=== PATIENT | female | born 1955 | race Caucasian/White ===

== ENCOUNTER → 2017-04-03 | Outpatient (CLI) | payer BC ==
--- NOTE | 2017-04-03 14:50 | XR ---
EXAMINATION TYPE: XR chest 2V DATE OF EXAM: 04/03/2017 HISTORY: N28.1 cyst on kidney. REFERENCE: Previous study dated 10/08/2016. FINDINGS: The lungs are clear. Pleural spaces are clear. Heart size is upper limits of normal. IMPRESSION: NO ACTIVE INTRATHORACIC DISEASE.
[2017-04-03 14:51] LABS: Blood Urea Nitrogen 20 mg/dL (7-17); Non-African American GFR(MDRD) >60 (>60 ml/min/1.73 sqM)
--- NOTE | 2017-04-03 15:42 | CT ---
EXAMINATION TYPE: CT abdomen w con DATE OF EXAM: 04/03/2017 REFERENCE: Previous study dated 07/17/2016. HISTORY: N28.1 cyst on kidney HISTORY: Follow up renal cancer. No complaints at time of scan REFERENCE: NONE CT DLP: 1013.8 mGy Automated exposure control for dose reduction was used. TECHNIQUE: Helical acquisition through the abdomen and pelvis was obtained following the oral ingesti on of with Oral Contrast and following intravenous administration of 100 mL of Omnipaque 300. The christa a was reformatted in axial, coronal and sagittal projections. FINDINGS: There is minimal dependent atelectasis at the right lung base. There is no pleural or rosette cardial fluid. Heart size upper limits of normal. There is a small hiatal hernia. Within the abdomen, the gallbladder is contracted. The liver and spleen are normal. Both adrenal glands are normal. There is a stable defect along the lateral margin of the lower pole of the left kidney. There is a st able, 8mm oval lesion in the mid polar region of the left kidney. The right kidney appears normal. The pancreas is unremarkable. There is no significant retroperitoneal adenopathy. Loops of large and small bowel appear normal. No free fluid and no free air is seen. There is mild degenerative disc disease and hypertrophic spondylosis within the spine. No bony destru ctive lesion is seen. IMPRESSION: 1. STATUS POST LEFT HEMINEPHRECTOMY. 2. SMALL HIATAL HERNIA. 3. MILD DEGENERATIVE CHANGES WITHIN THE SPINE.
== END | disposition home or self-care (01) ==
LOC: RADCTMAIN 13:58
PROVIDERS: ATTEND Urology
DX: K44.9 Diaphragmatic hernia without obstruction or gangrene (principal); N28.1 Cyst of kidney, acquired; Z88.5 Allergy status to narcotic agent
CPT/HCPCS: 82565; 84520; 71020; 74160; 36415; Q9967

== ENCOUNTER → 2018-04-23 | Outpatient (CLI) | payer BC ==
[2018-04-23 18:56] LABS: Blood Urea Nitrogen 15 mg/dL (7-17)
--- NOTE | 2018-04-23 19:10 | XR ---
EXAMINATION TYPE: XR chest 2V DATE OF EXAM: 04/23/2018 COMPARISON: 10/08/2017 HISTORY: Renal cancer TECHNIQUE: Frontal and lateral views of the chest are obtained. FINDINGS: Heart and mediastinum are normal. Lungs are clear. Diaphragm is normal. Bony thorax appear s normal. IMPRESSION: Normal chest. No change.
[2018-04-23 20:03] LABS: ALT 35 U/L (9-52); AST 24 U/L (14-36); Albumin 4.3 g/dL (3.5-5.0); Alkaline Phosphatase 75 U/L (38-126); Anion Gap 11 mmol/L; Blood Urea Nitrogen 15 mg/dL (7-17); Calcium 9.4 mg/dL (8.4-10.2); Carbon Dioxide 28 mmol/L (22-30); Chloride 100 mmol/L (98-107); Glucose 88 mg/dL (74-99); Potassium 3.9 mmol/L (3.5-5.1); Sodium 139 mmol/L (137-145); Total Bilirubin 0.2 mg/dL (0.2-1.3); Total Protein 6.7 g/dL (6.3-8.2)
--- NOTE | 2018-04-24 08:08 | CT ---
EXAMINATION TYPE: CT abdomen w con DATE OF EXAM: 04/23/2018 HISTORY: Malignant neoplasm of kidney progress study CT DLP: 1205mGycm Automated Exposure Control for Dose Reduction was Utilized. CONTRAST: CT scan of the abdomen is performed with oral and with IV Contrast, patient injected with 100 mL of I sovue 300. COMPARISON: CT abdomen April 03, 2017 and older studies. FINDINGS: LUNG BASES: There is mild central left basilar linear scarring redemonstrated. Tiny pericardial effus ion is again seen LIVER/GB: Liver remains heterogeneously hypodense to isodense likely reflecting diffuse fatty infiltr ation. PANCREAS: Some mild generalized fat replaced atrophy of the pancreas is redemonstrated. SPLEEN: No significant abnormality is seen. ADRENALS: No significant abnormality is seen. KIDNEYS: There are surgical sutures along lateral mid to lower pole level left kidney from prior part ial nephrectomy redemonstrated where there was exophytic neoplasm on original study February 19, 2016. S ome vague area of subcentimeter diminished enhancement does not appear significantly changed from oth er postsurgical studies likely reflecting scarring. There is symmetric cortical medullary uptake and excretion from both kidneys with few subcentimeter areas of hypodensity felt to reflect small cysts s een bilaterally but too small to definitively characterize redemonstrated. BOWEL: Oral contrast does not reach level of the colon. There is no suspicious small or large bowel d ilatation. There is small bowel feces sign of terminal ileum consistent with delayed passage of inges elena material to colonic level. Stable small hiatal hernia is present. LYMPH NODES: No greater than 1cm abdominal lymph nodes are appreciated. OSSEOUS STRUCTURES: There is mild to moderate multilevel spurring and disc space narrowing. OTHER: No significant additional abnormality is seen. IMPRESSION: Overall stable findings, post treatment changes laterally mid to lower pole level from pa rtial nephrectomy redemonstrated. No new mass or adenopathy is seen to suggest neoplastic recurrence.
== END | disposition home or self-care (01) ==
LOC: RADCTMAIN 18:17
PROVIDERS: ATTEND Urology
DX: C64.2 Malignant neoplasm of left kidney, except renal pelvis (principal); Z90.5 Acquired absence of kidney; Z88.5 Allergy status to narcotic agent; Z88.8 Allergy status to other drugs, medicaments and biological substances
CPT/HCPCS: 80053; 82565; 84520; 71046; 74160; 36415; Q9967

== ENCOUNTER 2018-05-11 14:01 | Inpatient (IN) | payer BC ==
[2018-05-11 14:54] LABS: Basophils % (A) 0 %; Eosinophils # (A) 0.1 k/uL (0-0.7); Eosinophils % (A) 1 %; HCT 33.1 % (34.0-46.0); Lymphocytes % (A) 7 %; MCH 28.7 pg (25.0-35.0); MCHC 33.1 g/dL (31.0-37.0); MCV 86.6 fL (80.0-100.0); Mean Platelet Volume 6.4; Monocytes # (A) 0.8 k/uL (0-1.0); Monocytes % (A) 5 %; Neutrophils # (A) 13.5 k/uL (1.3-7.7); Neutrophils % (A) 87 %; Platelet Count 486 k/uL (150-450); RBC 3.82 m/uL (3.80-5.40); RDW 12.2 % (11.5-15.5); WBC 15.6 k/uL (3.8-10.6)
[2018-05-11 15:03] LABS: ALT 35 U/L (9-52); AST 21 U/L (14-36); Albumin 4.1 g/dL (3.5-5.0); Alkaline Phosphatase 123 U/L (38-126); Amylase 35 U/L (30-110); Anion Gap 14 mmol/L; Blood Urea Nitrogen 13 mg/dL (7-17); Calcium 9.3 mg/dL (8.4-10.2); Carbon Dioxide 24 mmol/L (22-30); Chloride 100 mmol/L (98-107); Glucose 119 mg/dL (74-99); Lipase <10 U/L (23-300); Potassium 3.9 mmol/L (3.5-5.1); Sodium 138 mmol/L (137-145); Total Bilirubin 0.5 mg/dL (0.2-1.3); Total Protein 6.8 g/dL (6.3-8.2)
--- NOTE | 2018-05-11 15:10 | XR ---
EXAMINATION TYPE: XR KUB DATE OF EXAM: 05/11/2018 2:55 PM CLINICAL HISTORY: Left renal cell carcinoma, lower abdominal pain and low-grade fever for one week. TECHNIQUE: Single upright image of the abdomen is obtained. COMPARISON: None. FINDINGS: Scattered gas is seen in nondilated small bowel loops. Gas and fecal material is seen in no ndilated colon. There is no visceromegaly, pneumoperitoneum, or abnormal calcification appreciated. T he lung bases are clear and the osseous structures are intact. There is a mild dextroscoliotic curvat ure of the thoracolumbar junction. IMPRESSION: Nonobstructive bowel gas pattern.
[2018-05-11 17:16] LABS: Appearance,Urine Cloudy (Clear); Bilirubin,Urine Negative (Negative); Blood,Urine Trace (Negative); Color,Urine Yellow; Glucose,Urine (UA) Negative (Negative); Ketones,Urine Negative (Negative); Leukocyte Esterase,Urine Large (Negative); Mucus,Urine Occasional /hpf; Nitrite,Urine Negative (Negative); PH, Urine 5.5 (5.0-8.0); Protein,Urine Trace (Negative); RBC,Urine 3 /hpf (0-5); Specific Gravity,Urine 1.015 (1.001-1.035); Squamous Epithelial Cell,Urine 2 /hpf (0-4); Urobilinogen,Urine <2.0 mg/dL (<2.0); WBC,Urine 18 /hpf (0-5)
[2018-05-11] MEDS ORDERED: ACETAMINOPHEN TAB 500 MG TAB PO STA (18:02)
[2018-05-11] MEDS ORDERED: SODIUM CHLORIDE 0.9% 1,000 ML IV STA (18:02)
--- NOTE | 2018-05-11 18:17 | ED ---
General Adult HPI - General Chief complaint: Abdominal Pain Stated complaint: Fever/101.8/Abd Pain Time Seen by Provider: 05/11/18 17:25 Source: patient, RN notes reviewed Mode of arrival: ambulatory Limitations: no limitations - History of Present Illness Initial comments: 62-year-old female presents to the emergency department for intermittent abdominal pain times one week. Patient states the pain comes and goes. Patient states she has had a low-grade fever for the past week as well. Patient admits to nausea and has vomited 3 times today. Patient denies any diarrhea or blood in the stool. Patient states her last bowel movement was earlier today. Patient has had a history of diverticulitis in the past a few years ago. She has not had any problems since. Patient has no other complaints at this time including shortness of breath, chest pain, abdominal pain, nausea or vomiting, headache, or visual changes. - Related Data Home Medications Medication Instructions Recorded Confirmed Cholecalciferol [Vitamin D3] 1,000 unit PO DAILY 05/11/18 05/11/18 Allergies Allergy/AdvReac Type Severity Reaction Status Date / Time codeine AdvReac Nausea & Verified 05/11/18 17:23 Vomiting hydromorphone [From Dilaudid] AdvReac Nausea Verified 05/11/18 17:23 Review of Systems ROS Statement: Those systems with pertinent positive or pertinent negative responses have been documented in the HPI. ROS Other: All systems not noted in ROS Statement are negative. Past Medical History Past Medical History: Chest Pain / Angina, Pneumonia, Sleep Apnea/CPAP/BIPAP Additional Past Medical History / Comment(s): DIVERTICULOSIS, COLITIS, USES A CPAP MACHINE, PER PT" THEY FOUND A MASS ON LT KIDNEY ON A CT SCAN" History of Any Multi-Drug Resistant Organisms: None Reported Past Surgical History: Tubal Ligation Additional Past Surgical History / Comment(s): COLONOCOCPY,SINUS SX, D&C 2001, FATTY TUMOR REMOVED FROM [employer] AREA REMOVED , 04-18-16 partial lt nephrectomy. Past Anesthesia/Blood Transfusion Reactions: Motion Sickness, Postoperative Nausea & Vomiting (PONV) Past Psychological History: No Psychological Hx Reported Smoking Status: Never smoker Past Alcohol Use History: Occasional Past Drug Use History: None Reported - Past Family History Father Family Medical History: Renal Disease Mother Family Medical History: AFIB, Cancer, Diabetes Mellitus Additional Family Medical History / Comment(s): BREAST AND COLON CANCER General Exam Limitations: no limitations General appearance: alert, in no apparent distress Head exam: Present: atraumatic, normocephalic, normal inspection Eye exam: Present: normal appearance, PERRL, EOMI. Absent: scleral icterus, conjunctival injection, periorbital swelling ENT exam: Present: normal exam, mucous membranes moist Neck exam: Present: normal inspection, full ROM. Absent: tenderness, meningismus, lymphadenopathy Respiratory exam: Present: normal lung sounds bilaterally. Absent: respiratory distress, wheezes, rales, rhonchi, stridor Cardiovascular Exam: Present: regular rate, normal rhythm, normal heart sounds. Absent: systolic murmur, diastolic murmur, rubs, gallop, clicks GI/Abdominal exam: Present: soft, tenderness (Patient has left lower quadrant tenderness), guarding (Mild left lower quadrant guarding), normal bowel sounds, other (Negative Rovsing, obturator, McBurney signs). Absent: distended, rebound , rigid Course Vital Signs 05/11/18 05/11/18 14:18 17:21 Temperature 101.7 F H 99.2 F Pulse Rate 95 87 Respiratory 18 20 Rate Blood Pressure 136/60 133/62 O2 Sat by Pulse 98 98 Oximetry Medical Decision Making - Medical Decision Making 62-year-old female presents to the emergency department for a chief complaint of abdominal pain times one week. Patient has had a fever with this which has been low grade for about the past week. Today, pain worsened so patient came to the emergency department Patient has a history of diverticulitis. Patient has been nauseous and vomited 3 times today. Patient denies any urinary symptoms such as burning with urination or difficulty urinating. Patient states she is hungry in the emergency department. Patient states the pain feels better at this time but that it has been intermittent over the past week. On exam patient does have left lower quadrant tenderness with mild guarding. Patient's white count is 15.6. Lactic 0.7. CT abdomen and pelvis with contrast shows new left-sided hydronephrosis and hydroureter with apparent obstruction of the distal left ureter due to inflammatory mass in the pelvis and peridiverticular abscess. Patient will be admitted for IV antibiotics. - Lab Data Result diagrams: 05/11/18 14:40 05/11/18 14:40 Lab Results 05/11/18 05/11/18 05/11/18 Range/Units 14:40 14:40 14:40 WBC 15.6 H (3.8-10.6) k/uL RBC 3.82 (3.80-5.40) m/uL Hgb 11.0 L (11.4-16.0) gm/dL Hct 33.1 L (34.0-46.0) % MCV 86.6 (80.0-100.0) fL MCH 28.7 (25.0-35.0) pg MCHC 33.1 (31.0-37.0) g/dL RDW 12.2 (11.5-15.5) % Plt Count 486 H (150-450) k/uL Neutrophils % 87 % Lymphocytes % 7 % Monocytes % 5 % Eosinophils % 1 % Basophils % 0 % Neutrophils # 13.5 H (1.3-7.7) k/uL Lymphocytes # 1.0 (1.0-4.8) k/uL Monocytes # 0.8 (0-1.0) k/uL Eosinophils # 0.1 (0-0.7) k/uL Basophils # 0.0 (0-0.2) k/uL Sodium 138 (137-145) mmol/L Potassium 3.9 (3.5-5.1) mmol/L Chloride 100 (98-107) mmol/L Carbon Dioxide 24 (22-30) mmol/L Anion Gap 14 mmol/L BUN 13 (7-17) mg/dL Creatinine 0.70 (0.52-1.04) mg/dL Est GFR (CKD-EPI)AfAm >90 (>60 ml/min/1.73 sqM) Est GFR (CKD-EPI)NonAf >90 (>60 ml/min/1.73 sqM) Glucose 119 H (74-99) mg/dL Plasma Lactic Acid Justino 0.7 (0.7-2.0) mmol/L Calcium 9.3 (8.4-10.2) mg/dL Total Bilirubin 0.5 (0.2-1.3) mg/dL AST 21 (14-36) U/L ALT 35 (9-52) U/L Alkaline Phosphatase 123 (38-126) U/L Total Protein 6.8 (6.3-8.2) g/dL Albumin 4.1 (3.5-5.0) g/dL Amylase 35 (30-110) U/L Lipase <10 L (23-300) U/L Urine Color Urine Appearance (Clear) Urine pH (5.0-8.0) Ur Specific [place] (1.001-1.035) Urine Protein (Negative) Urine Glucose (UA) (Negative) Urine Ketones (Negative) Urine Blood (Negative) Urine Nitrite (Negative) Urine Bilirubin (Negative) Urine Urobilinogen (<2.0) mg/dL Ur Leukocyte Esterase (Negative) Urine RBC (0-5) /hpf Urine WBC (0-5) /hpf Ur Squamous Epith Cells (0-4) /hpf Urine Mucus (None) /hpf 05/11/18 Range/Units 16:46 WBC (3.8-10.6) k/uL RBC (3.80-5.40) m/uL Hgb (11.4-16.0) gm/dL Hct (34.0-46.0) % MCV (80.0-100.0) fL MCH (25.0-35.0) pg MCHC (31.0-37.0) g/dL RDW (11.5-15.5) % Plt Count (150-450) k/uL Neutrophils % % Lymphocytes % % Monocytes % % Eosinophils % % Basophils % % Neutrophils # (1.3-7.7) k/uL Lymphocytes # (1.0-4.8) k/uL Monocytes # (0-1.0) k/uL Eosinophils # (0-0.7) k/uL Basophils # (0-0.2) k/uL Sodium (137-145) mmol/L Potassium (3.5-5.1) mmol/L Chloride (98-107) mmol/L Carbon Dioxide (22-30) mmol/L Anion Gap mmol/L BUN (7-17) mg/dL Creatinine (0.52-1.04) mg/dL Est GFR (CKD-EPI)AfAm (>60 ml/min/1.73 sqM) Est GFR (CKD-EPI)NonAf (>60 ml/min/1.73 sqM) Glucose (74-99) mg/dL Plasma Lactic Acid Justino (0.7-2.0) mmol/L Calcium (8.4-10.2) mg/dL Total Bilirubin (0.2-1.3) mg/dL AST (14-36) U/L ALT (9-52) U/L Alkaline Phosphatase (38-126) U/L Total Protein (6.3-8.2) g/dL Albumin (3.5-5.0) g/dL Amylase (30-110) U/L Lipase (23-300) U/L Urine Color Yellow Urine Appearance Cloudy H (Clear) Urine pH 5.5 (5.0-8.0) Ur Specific [place] 1.015 (1.001-1.035) Urine Protein Trace H (Negative) Urine Glucose (UA) Negative (Negative) Urine Ketones Negative (Negative) Urine Blood Trace H (Negative) Urine Nitrite Negative (Negative) Urine Bilirubin Negative (Negative) Urine Urobilinogen <2.0 (<2.0) mg/dL Ur Leukocyte Esterase Large H (Negative) Urine RBC 3 (0-5) /hpf Urine WBC 18 H (0-5) /hpf Ur Squamous Epith Cells 2 (0-4) /hpf Urine Mucus Occasional H (None) /hpf Disposition Clinical Impression: Diverticulitis, Intestinal diverticular abscess Disposition: ADMITTED IP TO THIS HOSP Condition: Good Is patient prescribed a controlled substance at d/c from ED?: No Referrals: Aidan Lazo MD [Primary Care Provider] - 1-2 days Time of Disposition: 20:48
--- NOTE | 2018-05-11 19:34 | CT ---
EXAMINATION TYPE: CT abdomen pelvis w con DATE OF EXAM: 05/11/2018 COMPARISON: 04/23/2018 HISTORY: Abdominal pain, vomiting and fever CT DLP: 1585.5 mGycm Automated exposure control for dose reduction was used. TECHNIQUE: Helical acquisition of images was performed from the lung bases through the pelvis. CONTRAST: Performed without Oral Contrast and with IV Contrast, patient injected with 100 mL of Isovue 300. FINDINGS: Lung bases are clear of consolidation. There is no pleural effusion. There is no pericardial effusion . Heart appears slightly enlarged. Liver shows no focal defect. Spleen appears normal. There is no pancreatic mass. Bile ducts are not d ilated. Gallbladder appears normal. There is left-sided hydronephrosis and hydroureter. The right kidney shows no evidence of obstruction . There is some cortical thinning and deformity on the anterior left kidney consistent with posttreat ment changes. There is wall thickening of the proximal sigmoid colon with some fat stranding. There is a 5.5 cm irr egular mixed density mass on the left side lateral wall of the mid pelvis that contains fluid and air and is displacing the sigmoid colon. This is consistent with the peridiverticular abscess. There is also some displacement of the urinary bladder. There is no free fluid in the pelvis. The bony structures appear intact. IMPRESSION: CORTICAL THINNING AND DEFORMITY IN THE ANTERIOR LEFT KIDNEY IS UNCHANGED COMPARED TO OLD EXAM. THERE IS NEW LEFT-SIDED HYDRONEPHROSIS AND HYDROURETER WITH APPARENT OBSTRUCTION OF THE DISTAL LEFT URETER DUE TO INFLAMMATORY MASS IN THE PELVIS AND PERIDIVERTICULAR ABSCESS. THIS ABSCESS IS SIMILAR TO THE A BSCESS EVIDENT ON THE OLD CT SCAN OF 02/19/2016.
[2018-05-11] MEDS ORDERED: NALOXONE 0.4 MG/ML 1 ML VIAL IV PRN (20:39)
[2018-05-11] MEDS ORDERED: HYDROcodone/APAP 5-325MG 1 EACH TAB PO PRN (20:39)
[2018-05-11] MEDS: SODIUM CHLORIDE 0.9% 1,000 ML IV SCH (21:07)
[2018-05-11 22:08] VITALS: BMI 33.7
[2018-05-11] MEDS: PIPERACILLIN-TAZOBACTAM 3.375 GM in DEXTROSE/WATER 1 50ML.BAG IVPB SCH (22:31)
[2018-05-12] MEDS: SODIUM CHLORIDE 0.9% 1,000 ML IV SCH ×2 (06:13→16:09)
[2018-05-12 07:31] LABS: HCT 33.4 % (34.0-46.0); MCHC 32.9 g/dL (31.0-37.0); MCV 88.2 fL (80.0-100.0); Mean Platelet Volume 7.3; Platelet Count 452 k/uL (150-450); RBC 3.78 m/uL (3.80-5.40); RDW 12.2 % (11.5-15.5)
[2018-05-12 08:21] LABS: Anion Gap 12 mmol/L; Blood Urea Nitrogen 11 mg/dL (7-17); Calcium 8.7 mg/dL (8.4-10.2); Carbon Dioxide 26 mmol/L (22-30); Chloride 104 mmol/L (98-107); Glucose 111 mg/dL (74-99); Potassium 3.7 mmol/L (3.5-5.1); Sodium 142 mmol/L (137-145)
[2018-05-12] MEDS: PIPERACILLIN-TAZOBACTAM 3.375 GM in DEXTROSE/WATER 1 50ML.BAG IVPB SCH ×2 (08:35→16:07)
[2018-05-12] MEDS: HEPARIN SODIUM,PORCINE 5,000 UNIT/ML 1 ML VIAL SQ SCH ×2 (08:48→20:56)
[2018-05-12 09:19] LABS: Erythrocyte Sedimentation Rate 91 mm/hr (0-20)
--- NOTE | 2018-05-12 11:48 | US ---
EXAMINATION TYPE: US pelvic complete DATE OF EXAM: 05/12/2018 COMPARISON: CT abdomen pelvis yesterday CLINICAL HISTORY: abnormal ct. Fever, pelvic pain, nausea, 2, para 2, history of diverticulit is and renal CA, history of tubal ligation TECHNIQUE: . Transabdominal sonographic images of the pelvis were acquired. Transvaginal sonographi c images were medically necessary to better assess the following anatomy: ovaries and endometrium Date of LMP: Unknown EXAM MEASUREMENTS: Uterus: 6.7 x 2.9 x 4.4 cm Endometrial Stripe: 0.3 cm Right Ovary: not seen Left Ovary: not seen 1. Uterus: anteverted, heterogeneous 2. Endometrium: wnl 3. Right Ovary: not seen due to overlying bowel gas 4. Left Ovary: not seen due to overlying bowel gas 5. Bilateral Adnexa: wnl 6. Posterior cul-de-sac: wnl Midline pelvis superior to bladder/uterus: 4.7 x 4.6 x 4.3cm non peristalsing hypoechoic Vague hypoechoic areas has indistinguishable margins from adjacent uterus on images saved. Findings c orrelate with CT. IMPRESSION: Suboptimal visualization of left pelvic abscess on ultrasound, does not help identify curt gin related to left ovary or adjacent colon which would be favored based on CT.
--- NOTE | 2018-05-12 12:26 | P.GSCN ---
History of Present Illness Consult date: 05/12/18 History of present illness: this is a pleasant 62-year-old female who we've been asked to see for left- sided hydronephrosis. She is known to for renal cell carcinoma treated with a robotic partial nephrectomy in 2016. He has done well from that. For the last week she has had abdominal pain and diarrhea and low-grade fever. She presented emergency room was identified to have a inflammatory pelvic mass consistent with diverticular inflammation and perhaps diverticular abscess. She is noted to have hydroureteronephrosis down to this mass. She had a computed tomography scan a couple weeks prior and follow-up of her renal cell carcinoma the did not show any [place]. There is no stone seen on the computed tomography scan. She has not have any flank pain. She feels better after 24 hours of antibiotics. Her temperature is down. Her white count is gone from 15,000-9000. She has no voiding symptoms. She has not had any notable diarrhea. Review of Systems - Constitutional Reports fever, Reports night sweats - Genitourinary Genitourinary: Reports as per HPI Past Medical History Past Medical History: Cancer, Chest Pain / Angina, Pneumonia, Sleep Apnea/CPAP/ BIPAP Additional Past Medical History / Comment(s): DIVERTICULOSIS, COLITIS, USES A CPAP MACHINE, PER PT" THEY FOUND A TUMOR ON LT KIDNEY ON A CT SCAN" History of Any Multi-Drug Resistant Organisms: None Reported Past Surgical History: Tubal Ligation Additional Past Surgical History / Comment(s): COLONOCOCPY,SINUS SX, D&C 2001, FATTY TUMOR REMOVED FROM [employer] AREA REMOVED , 04-18-16 partial lt nephrectomy. Past Anesthesia/Blood Transfusion Reactions: Motion Sickness, Postoperative Nausea & Vomiting (PONV) Past Psychological History: No Psychological Hx Reported Smoking Status: Never smoker Past Alcohol Use History: Occasional Past Drug Use History: None Reported - Past Family History Father Family Medical History: Renal Disease Mother Family Medical History: AFIB, Cancer, Diabetes Mellitus Additional Family Medical History / Comment(s): BREAST AND COLON CANCER Medications and Allergies Home Medications Medication Instructions Recorded Confirmed Type Cholecalciferol [Vitamin D3] 1,000 unit PO DAILY 05/11/18 05/11/18 History Ibuprofen [Motrin Ib] 400 mg PO Q8HR 07/09/18 07/09/18 History Allergies Allergy/AdvReac Type Severity Reaction Status Date / Time codeine AdvReac Nausea & Verified 05/11/18 17:23 Vomiting hydromorphone [From Dilaudid] AdvReac Nausea Verified 05/11/18 17:23 Surgical - Exam Vital Signs Temp Pulse Resp BP Pulse Ox 101.7 F H 95 18 136/60 98 05/11/18 14:18 05/11/18 14:18 05/11/18 14:18 05/11/18 14:18 05/11/18 14:18 - General well developed, well nourished, no distress - Eyes PERRL - ENT no hearing loss - Neck no masses - Respiratory normal expansion, normal respiratory effort - Cardiovascular Rhythm: regular - Abdomen Abdomen: soft, non tender, tender - Integumentary no rash, no growths - Neurologic normal coordination, normal sensation - Musculoskeletal normal posture - Psychiatric oriented to time, oriented to person, oriented to place, speech is normal, memory intact Results - Labs 05/12/18 07:17 05/12/18 07:24 Abnormal Lab Results - Last 24 Hours (Table) 05/11/18 05/11/18 05/11/18 Range/Units 14:40 14:40 16:46 WBC 15.6 H (3.8-10.6) k/uL RBC (3.80-5.40) m/uL Hgb 11.0 L (11.4-16.0) gm/dL Hct 33.1 L (34.0-46.0) % Plt Count 486 H (150-450) k/uL Neutrophils # 13.5 H (1.3-7.7) k/uL ESR (0-20) mm/hr Glucose 119 H (74-99) mg/dL Lipase <10 L (23-300) U/L Urine Appearance Cloudy H (Clear) Urine Protein Trace H (Negative) Urine Blood Trace H (Negative) Ur Leukocyte Esterase Large H (Negative) Urine WBC 18 H (0-5) /hpf Urine Mucus Occasional H (None) /hpf 05/12/18 05/12/18 Range/Units 07:17 07:24 WBC (3.8-10.6) k/uL RBC 3.78 L (3.80-5.40) m/uL Hgb 11.0 L (11.4-16.0) gm/dL Hct 33.4 L (34.0-46.0) % Plt Count 452 H (150-450) k/uL Neutrophils # (1.3-7.7) k/uL ESR 91 H (0-20) mm/hr Glucose 111 H (74-99) mg/dL Lipase (23-300) U/L Urine Appearance (Clear) Urine Protein (Negative) Urine Blood (Negative) Ur Leukocyte Esterase (Negative) Urine WBC (0-5) /hpf Urine Mucus (None) /hpf Diabetes panel 05/11/18 05/12/18 Range/Units 14:40 07:24 Sodium 138 142 (137-145) mmol/L Potassium 3.9 3.7 (3.5-5.1) mmol/L Chloride 100 104 (98-107) mmol/L Carbon Dioxide 24 26 (22-30) mmol/L BUN 13 11 (7-17) mg/dL Creatinine 0.70 0.67 (0.52-1.04) mg/dL Glucose 119 H 111 H (74-99) mg/dL Calcium 9.3 8.7 (8.4-10.2) mg/dL AST 21 (14-36) U/L ALT 35 (9-52) U/L Alkaline Phosphatase 123 (38-126) U/L Total Protein 6.8 (6.3-8.2) g/dL Albumin 4.1 (3.5-5.0) g/dL Calcium panel 05/11/18 05/12/18 Range/Units 14:40 07:24 Calcium 9.3 8.7 (8.4-10.2) mg/dL Albumin 4.1 (3.5-5.0) g/dL Pituitary panel 05/11/18 05/12/18 Range/Units 14:40 07:24 Sodium 138 142 (137-145) mmol/L Potassium 3.9 3.7 (3.5-5.1) mmol/L Chloride 100 104 (98-107) mmol/L Carbon Dioxide 24 26 (22-30) mmol/L BUN 13 11 (7-17) mg/dL Creatinine 0.70 0.67 (0.52-1.04) mg/dL Glucose 119 H 111 H (74-99) mg/dL Calcium 9.3 8.7 (8.4-10.2) mg/dL Adrenal panel 05/11/18 05/12/18 Range/Units 14:40 07:24 Sodium 138 142 (137-145) mmol/L Potassium 3.9 3.7 (3.5-5.1) mmol/L Chloride 100 104 (98-107) mmol/L Carbon Dioxide 24 26 (22-30) mmol/L BUN 13 11 (7-17) mg/dL Creatinine 0.70 0.67 (0.52-1.04) mg/dL Glucose 119 H 111 H (74-99) mg/dL Calcium 9.3 8.7 (8.4-10.2) mg/dL Total Bilirubin 0.5 (0.2-1.3) mg/dL AST 21 (14-36) U/L ALT 35 (9-52) U/L Alkaline Phosphatase 123 (38-126) U/L Total Protein 6.8 (6.3-8.2) g/dL Albumin 4.1 (3.5-5.0) g/dL - Imaging CT scan - abdomen: report reviewed, image reviewed CT scan - pelvis: report reviewed, image reviewed Assessment and Plan Assessment: impression: Left-sided hydro-ureteral nephrosis(new, not present 04/23/2018). Pelvic inflammatory mass consistent with diverticulitis and perhaps diverticular abscess. History of left sided renal cell carcinoma treated with partial nephrectomy Accommodations: The hydronephrosis should settle down as inflammatory processes treated. This is this patient's second significant bout of diverticular disease. She may need surgical consultation for this in the future. Urologically the antibiotics and a follow-up ultrasound would be appropriate.
[2018-05-12] MEDS: ACETAMINOPHEN TAB 325 MG TAB PO PRN (17:14)
--- NOTE | 2018-05-12 22:01 | HP ---
HISTORY AND PHYSICAL CHIEF COMPLAINT: Abdominal pain and fever. HISTORY OF PRESENT ILLNESS: This is a 62-year-old female who presents to the hospital upon referral because of having a low-grade fever all week and started having higher temperatures today. The patient complains of lower abdominal pain, some nausea. No vomiting. No diarrhea. No constipation. No rectal bleeding. The patient has had similar symptoms in the past. She had acute diverticulitis about 2 years ago. The patient also recently underwent a CT scan of the abdomen for a followup regarding left renal cell carcinoma. The CT scan was reported unremarkable. In the emergency room, the patient did have laboratory evaluation done which revealed elevated white count. The patient had a CT scan of the abdomen done which suggested acute diverticulitis; possibility of inflammatory changes in the pelvis and ovarian mass not ruled out. The patient had similar findings back in 2016. At present, the patient seems to be doing better. She was, in view of her previous history of diverticular abscess and significant diverticulitis, started on Zosyn. PAST MEDICAL HISTORY: Significant for renal cell carcinoma. No history of any lung disease, liver disease, kidney disease, ulcers, TB, rheumatic fever. No history of any myocardial infarction or CVA. She does have renal cell carcinoma, for which she underwent partial nephrectomy 2 years ago. PERSONAL HISTORY: Nonsmoker. About one alcoholic drink per week. ALLERGIES: SENSITIVE TO CODEINE AND DILAUDID. PAST SURGICAL HISTORY: 1. Left partial nephrectomy, robotic. 2. Lipoma in abdominal area removed. 3. Tubal ligation. 4. Sinus surgery. Personal history nonsmoker. MEDICATIONS: 1. Motrin p.r.n. 2. Vitamin D3 1000 units daily. SOCIAL HISTORY: Patient is , lives with her spouse. FAMILY MEDICAL HISTORY: Father at age of 53 with coronary artery disease and chronic kidney disease. Mother at the age of 81. She had colon cancer and COPD. No siblings. The patient has a son 28, a daughter 31, in good health. REVIEW OF SYSTEMS: NEURO: Denies any headaches, dizziness. No double vision or blurred vision. No symptoms of TIA or syncope or seizures. PSYCH: No anxiety, depression. CARDIAC: No chest pain, angina, palpitation. RESPIRATORY: Denies shortness of breath, cough, hemoptysis. GI: Some nausea. No vomiting. Present complaint of abdominal pain, mostly lower abdomen bilaterally with more pain in the left lower quadrant. No diarrhea, constipation, hematochezia or melena. : No symptoms of dysuria, hematuria, urgency, frequency. No vaginal bleeding or discharge. EXTREMITIES: No pain, edema. CONSTITUTIONAL: Fever. No chills. PHYSICAL EXAMINATION: Pleasant 62-year-old female, at present in no distress. VITAL SIGNS: She was febrile at the time of presenting to the hospital with a temperature 101.7. Subsequent to that the fevers have subsided. Vital signs at the time of examination were from midnight: Patient's temperature was 98.2, pulse 70, respirations 16, blood pressure 145/84, pulse ox 97%. HEENT: Normocephalic. Neck supple. Pupils reactive. Conjunctivae pink. Sclerae non- icteric. Nostrils clear. Oral cavity is moist. Ears reveal no drainage. Neck reveals no JVD, carotid bruits or thyromegaly. CHEST: Clear to auscultation and percussion. CARDIAC: Normal S1, S2 with no gallops, murmurs or rubs. ABDOMEN: Mild tenderness in lower abdomen with minimal guarding, left lower quadrant. No rebound tenderness. Bowel sounds are active in all 4 quadrants. No CVA tenderness. Extremities reveal no edema. No tenderness. Neurologically awake, alert, oriented x3 with well-coordinated movements. LABORATORY ASSESSMENT: White count 15.6, hemoglobin 11.0, platelets 486. Random glucose 119. Normal hepatic and renal function. Lipase less than 10. Urinalysis unremarkable except for 18 WBCs in the urine. CT scan of the abdomen reveals some wall thickening of the proximal sigmoid colon and some fat stranding, 5 cm irregular mixed density mass in the left side lateral wall of the mid pelvis that contained fluid and air and is displacing the sigmoid colon, consistent with a peridiverticular abscess. Patient also had some left-sided hydronephrosis and hydroureter. ASSESSMENT: 1. Acute diverticulitis, possible abscess. 2. History of renal cell carcinoma. 3. Hydronephrosis, left side. PLAN: The patient at present is admitted to the hospital, started on Zosyn. Continue antibiotics. Pain medication as needed. The patient's diet will be clear liquids. Patient to be seen by Urology. May require surgical evaluation. Meanwhile, continue present treatment with pain control, antibiotics, prophylactic anticoagulation. MMODL / IJN: [id number] /
[2018-05-13] MEDS: PIPERACILLIN-TAZOBACTAM 3.375 GM in DEXTROSE/WATER 1 50ML.BAG IVPB SCH ×4 (05:33→23:11)
[2018-05-13] MEDS: SODIUM CHLORIDE 0.9% 1,000 ML IV SCH ×2 (05:34→23:12)
[2018-05-13] MEDS: HEPARIN SODIUM,PORCINE 5,000 UNIT/ML 1 ML VIAL SQ SCH ×2 (08:34→21:17)
[2018-05-13] MEDS: ACETAMINOPHEN TAB 325 MG TAB PO PRN (11:13)
--- NOTE | 2018-05-13 22:29 | PN ---
PROGRESS NOTE ATTENDING PHYSICIAN: Dr. Aditi Lazo. CHIEF COMPLAINT: Re-evaluation. HISTORY OF PRESENT ILLNESS: This is a 62-year-old female was admitted to the hospital with abdominal pain. The abdominal pain is mostly located to the left lower quadrant. She has no further fever. No nausea, vomiting. Appetite, does feel hungry. She is still on clear liquids. No bowel movements. No rectal bleeding. REVIEW OF SYSTEMS: NEURO: Denies any headaches, dizziness. PSYCH: No anxiety, depression. CARDIAC: No chest pain, angina, palpitation. RESPIRATORY: No shortness of breath, cough. GI: No nausea, vomiting, abdominal pain, diarrhea. : No symptoms of dysuria, hematuria. EXTREMITIES: Denies pain, edema. CONSTITUTIONAL: No fever, chills. PHYSICAL EXAMINATION: Pleasant female in no distress. Vital signs reveal temperature 97.8, pulse 72, respirations 18, blood pressure 148/71. HEENT: Normocephalic. NECK: No JVD. CHEST: Clear to auscultation, percussion. CARDIAC: Normal S1, S2 with no gallops, murmurs. ABDOMEN: Soft except for mild tenderness on deep palpation of the left lower quadrant. No rebound tenderness. Bowel sounds are active. Extremities reveal no edema. No tenderness. Neurologically, awake, alert, oriented x3. LABORATORY ASSESSMENT: None new. Yesterday's CBC was normal. White count status was . BMP was normal. ASSESSMENT: 1. Acute diverticulitis, improving. 2. Significant pericolic inflammation. 3. Hydronephrosis due to the inflammatory process. 4. History of renal cell carcinoma with no evidence of recurrence. PLAN: Continue present medical regimen. Patient's condition discussed with the patient. Prognosis guarded. Potential discharge home by Friday. MMODL / IJN: [id number] /
[2018-05-14 04:14] VITALS: RESP 18
[2018-05-14 08:32] VITALS: BP 144/80; PULSE 78; TEMP 97.7
[2018-05-14] MEDS: PIPERACILLIN-TAZOBACTAM 3.375 GM in DEXTROSE/WATER 1 50ML.BAG IVPB SCH (08:50)
--- NOTE | 2018-05-14 09:10 | P.PN ---
Progress Note - Text Progress Note Date: 05/14/18 Mrs. Waller is feeling much better now. Specifically, she states that her pain is improved and she is tolerating diet in small amounts. She is afebrile, and her WBC count has normalized. We discussed the significance of hydronephrosis, and the need for follow up imaging in several weeks (ultrasound or CT) to confirm resolution of her hydronephrosis.
[2018-05-14] MEDS: SODIUM CHLORIDE 0.9% 1,000 ML IV SCH (09:18)
[2018-05-14] MEDS: HEPARIN SODIUM,PORCINE 5,000 UNIT/ML 1 ML VIAL SQ SCH (09:29)
== END 2018-05-14 11:30 | disposition home or self-care (01) | DRG 392 ==
LOC: EC 14:01 → 6PED 20:49
PROVIDERS: ADMIT Internal Medicine; ATTEND Internal Medicine
DX: K57.80 Diverticulitis of intestine, part unspecified, with perforation and abscess without bleeding (principal); N13.1 Hydronephrosis with ureteral stricture, not elsewhere classified; G47.30 Sleep apnea, unspecified; Z80.0 Family history of malignant neoplasm of digestive organs; Z82.49 Family history of ischemic heart disease and other diseases of the circulatory system; Z82.5 Family history of asthma and other chronic lower respiratory diseases; Z83.3 Family history of diabetes mellitus; Z85.528 Personal history of other malignant neoplasm of kidney; Z90.5 Acquired absence of kidney; Z80.3 Family history of malignant neoplasm of breast; Z88.5 Allergy status to narcotic agent
CPT/HCPCS: 36415; 74018; 74177; 76830; 76856; 80048; 80053; 81001; 82150; 83605; 83690; 85025; 85027; 85652; 87040; 96360; 99285